=== PATIENT | male | born 1980 | race Caucasian/White ===

== ENCOUNTER → 2017-12-07 | Outpatient (CLI) | payer OTHER ==
[~2017-12-07] MED LIST: NOHOMEMEDICATIONS; NORCO 5-325 TA1 EACH PO
== END ==
LOC: M.ULTRA 16:00
DX: S86.811A Strain of other muscle(s) and tendon(s) at lower leg level, right leg, initial encounter (principal); R60.0 Localized edema; V89.2XXA Person injured in unspecified motor-vehicle accident, traffic, initial encounter; Y93.89 Activity, other specified; Y92.89 Other specified places as the place of occurrence of the external cause; Y99.8 Other external cause status

== ENCOUNTER 2020-09-07 18:23 | Emergency (ER) | payer OTHER ==
[~2020-09-07] VITALS: Ht 177.8 cm; Wt 131.5 kg
[2020-09-07] MEDS ORDERED: PREDNISONE 20 M20 MG PO (19:15)
[2020-09-07] MEDS ORDERED: ZPAK PO (19:15)
[2020-09-07] MEDS ORDERED: PROAIR HFA8.5 GM INH (19:15)
[2020-09-07 20:01] VITALS: BP 116/77
== END 2020-09-07 20:01 | disposition home or self-care (01) ==
LOC: M.ERS 18:23
DX: U07.1 COVID-19 (principal); J12.82 Pneumonia due to coronavirus disease 2019

== ENCOUNTER 2020-09-12 19:12 | Inpatient (IN) | payer OTHER ==
[~2020-09-12] VITALS: Ht 172.7 cm; Wt 123.8 kg
[~2020-09-12 19:12] MED LIST changes: +PREDNISONE 20 M20 MG PO; +PROAIR HFA8.5 GM INH; +ZPAK PO
[2020-09-12 19:29] VITALS: BP 152/86
[2020-09-12 20:09] LABS: HEMATOCRIT 43.5 % (42.0-52.0); HEMOGLOBIN 14.9 gm/dL (14.0-18.0); MCH 31.4 pg (26.0-34.0); MCHC 34.3 g/dL (28.0-37.0); MCV 91.7 fL (80.0-100.0); MPV 7.7 fl. (7.2-11.1); NUCLEATED RBCS 0 /100WBC; PLATELET COUNT* 565 thou/uL (150-400); RBC 4.75 mil/uL (4.50-6.00); WBC 11.9 thou/uL (4.0-11.0)
[2020-09-12 20:17] LABS: CALCIUM 8.5 mg/dL (8.5-10.1); CREATININE 1.1 mg/dL (0.6-1.3); POTASSIUM 3.8 mmol/L (3.5-5.1)
[2020-09-12 20:22] LABS: ALBUMIN 2.8 g/dL (3.4-5.0); MAGNESIUM 2.5 mg/dL (1.8-2.4); TOTAL BILIRUBIN 0.5 mg/dL (<0.1-1.0); TOTAL PROTEIN 8.2 g/dL (6.4-8.2)
[2020-09-12 20:30] LABS: ABSOLUTE MONOCYTES 0.5 thou/uL (0.0-1.2); ABSOLUTE NEUTROPHILS 10.5 thou/uL (1.6-8.1)
[2020-09-12 20:31] LABS: LARGE PLATELETS FEW; PLATELET ESTIMATE INCREASED
[2020-09-12 21:07] LABS: BE 4.4 mmol/L (-2 to +3); PO2 85.8 mmHg (75.0-100.0); pH 7.525 (7.340-7.450)
[2020-09-12 23:39] LABS: URINE BILIRUBIN NEGATIVE (Negative); URINE BLOOD TRACE (Negative); URINE CLARITY CLEAR; URINE COLOR YELLOW; URINE GLUCOSE-RANDOM 1+ (Negative); URINE KETONES TRACE (Negative); URINE LEUKOCYTES-REFLEX NEGATIVE (Negative); URINE NITRITE-REFLEX NEGATIVE (Negative); URINE PROTEIN 2+ (Negative); URINE SPECIFIC GRAVITY 1.025 (1.005-1.030)
[2020-09-12 23:55] LABS: BACTERIA-REFLEX 1-9 Few /HPF (None Seen); CASTS None Seen /LPF (None Seen); CRYSTALS None Seen /LPF (None Seen); MUCUS 0-3 Light strn/LPF (None Seen); SQUAMOUS 0-3 Few /LPF (0-3); URINE RBC 0-2 Rare /HPF (0-2); URINE WBC-REFLEX None Seen /HPF (0-5)
[2020-09-13] VITALS (94 sets, daily range): BP systolic 92–189; BP diastolic 45–135
--- NOTE | 2020-09-13 11:45 | EKG ---
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
[2020-09-13 20:20] LABS: BE -2.3 mmol/L (-2 to +3); PCO2 35.8 mmHg (35.0-45.0); PO2 65.4 mmHg (75.0-100.0); pH 7.403 (7.340-7.450)
[2020-09-13 21:50] LABS: ABSOLUTE EOSINOPHILS 0.1 thou/uL (0.0-0.7); ABSOLUTE MONOCYTES 0.2 thou/uL (0.0-1.2); ABSOLUTE NEUTROPHILS 6.8 thou/uL (1.6-8.1); BASOPHILS 0.4 %; EOSINOPHILS 1.2 %; HEMOGLOBIN 13.3 gm/dL (14.0-18.0); LYMPHOCYTES 12.6 %; MCH 32.4 pg (26.0-34.0); MCHC 35.1 g/dL (28.0-37.0); MCV 92.3 fL (80.0-100.0); MONOCYTES 2.6 %; MPV 7.3 fl. (7.2-11.1); NUCLEATED RBCS 0 /100WBC; POLYS 83.2 %; RBC 4.11 mil/uL (4.50-6.00); RDW-CV 12.9 % (10.5-14.5); WBC 8.1 thou/uL (4.0-11.0)
[2020-09-13 21:53] LABS: PLATELET COUNT* 352 thou/uL (150-400)
[2020-09-13 21:58] LABS: CALCIUM 7.3 mg/dL (8.5-10.1); CREATININE 1.1 mg/dL (0.6-1.3)
[2020-09-13 22:09] LABS: ALBUMIN 2.2 g/dL (3.4-5.0); TOTAL BILIRUBIN 0.7 mg/dL (<0.1-1.0); TOTAL PROTEIN 6.7 g/dL (6.4-8.2)
[2020-09-13 22:10] LABS: FIBRINOGEN 643 mg/dL (200-340); INR 1.2; PROTIME 12.9 Seconds (9.20-11.50)
[2020-09-14] VITALS (92 sets, daily range): BP systolic 90–142; BP diastolic 45–82
[2020-09-14 03:45] LABS: HEMATOCRIT 39.7 % (42.0-52.0); HEMOGLOBIN 13.7 gm/dL (14.0-18.0); MCH 32.2 pg (26.0-34.0); MCHC 34.6 g/dL (28.0-37.0); MCV 93.1 fL (80.0-100.0); MPV 7.6 fl. (7.2-11.1); RBC 4.26 mil/uL (4.50-6.00); WBC 6.9 thou/uL (4.0-11.0)
[2020-09-14 03:58] LABS: PHOSPHORUS* 2.4 mg/dL (2.5-4.9)
[2020-09-14 04:14] LABS: ALBUMIN 2.2 g/dL (3.4-5.0); CALCIUM 7.6 mg/dL (8.5-10.1); CREATININE 1.2 mg/dL (0.6-1.3); MAGNESIUM 2.7 mg/dL (1.8-2.4); POTASSIUM 4.5 mmol/L (3.5-5.1); TOTAL BILIRUBIN 0.7 mg/dL (<0.1-1.0); TOTAL PROTEIN 7.1 g/dL (6.4-8.2)
[2020-09-14 07:20] LABS: BE -0.6 mmol/L (-2 to +3); PCO2 37.1 mmHg (35.0-45.0); PO2 61.9 mmHg (75.0-100.0)
--- NOTE | 2020-09-14 13:43 | 2DMMODE ---
[place] [address] 2 D/M-MODE ECHOCARDIOGRAM Name: SANCHEZ SMITH Room: [address] IN [facility]#: [id number] Admission: 09/12/20 Attend Phys: Sharon Joya, Discharge: Date of : 76 Date of Service: 09/14/20 1343 Report #: [id number] THIS REPORT FOR: cc: Kevin Pickett Bradley L. DO Holkins, John M. MD [facility] ~ APPROVED REPORT Study performed: 09/14/2020 10:59:17 EXAM: Comprehensive 2D, Doppler, and color-flow Echocardiogram Patient Location: In-Patient Room #: 002 Status: routine BSA: 2.39 HR: 98 bpm BP: 142/78 mmHg Rhythm: NSR Other Information Study Quality: Good Indications respiratory failure 2D Dimensions IVSd: 14.26 (7-11mm) LVOT Diam: 21.61 (18-24mm) LVDd: 38.90 mm PWd: 10.84 (7-11mm) Ascending Ao: 30.05 (22-36mm) LVDs: 21.52 (25-40mm) Aortic Root: 36.02 mm Aortic Valve AoV Peak Onesimo.: 1.39 m/s AO Peak Gr.: 7.77 mmHg LVOT Max P.61 mmHg AO Mean Gr.: 4.47 mmHg LVOT Mean P.96 mmHg LVOT Max V: 1.29 m/s AO V2 VTI: 19.88 cm LVOT Mean V: 0.77 m/s MADDISON (VTI): 3.74 cm2 LVOT V1 VTI: 20.25 cm Mitral Valve E/A Ratio: 1.17 MV Decel. Time: 227.91 ms MV E Max Onesimo.: 0.69 m/[place] [address] 2 D/M-MODE ECHOCARDIOGRAM Name: SANCHEZ SMITH Room: [address] IN [facility]#: [id number] Admission: 09/12/20 Attend Phys: Sharon Joya, Discharge: Date of : 76 Date of Service: 09/14/20 1343 Report #: [id number] MV PHT: 66.09 ms MVA (PHT): 3.33 cm2 Pulmonary Valve PV Peak Onesimo.: 1.08 m/s PV Peak Gr.: 4.68 mmHg Tricuspid Valve RAP Estimate: 5.00 mmHg TR Peak Gr.: 40.81 mmHg RVSP: 45.00 mmHg PA Pressure: 45.00 mmHg Left Ventricle The left ventricle is normal size. There is normal LV segmental wall motion. There is normal left ventricular wall thickness. Left ventricular systolic function is normal. The left ventricular ejection fraction is within the normal range. LVEF is 60-65%. The left ventricular diastolic function is normal. Right Ventricle The right ventricle is normal size. The right ventricular systolic function is normal. Atria The left atrium size is normal. The right atrium size is normal. Aortic Valve The aortic valve is normal in structure. No aortic regurgitation is present. There is no aortic valvular stenosis. Mitral Valve The mitral valve is normal in structure. Trace mitral regurgitation. No evidence of mitral valve stenosis. Tricuspid Valve The tricuspid valve is normal in structure. Mild tricuspid regurgitation. Moderate pulmonary hypertension. Pulmonic Valve The pulmonary valve is normal in structure. Trace pulmonic regurgitation. Great Vessels The aortic root is normal in size. IVC is normal in size and collapses >50% [place] [address] 2 D/M-MODE ECHOCARDIOGRAM Name: SANCHEZ SMITH Room: [address]#: [id number] Admission: 09/12/20 Attend Phys: Sharon Joya, Discharge: Date of : 76 Date of Service: 09/14/20 1343 Report #: [id number] Pericardium There is no pericardial effusion. <Conclusion> The left ventricle is normal size. There is normal left ventricular wall thickness. Left ventricular systolic function is normal. The left ventricular ejection fraction is within the normal range. LVEF is 60-65%. The left ventricular diastolic function is normal. The right ventricle is normal size. The left atrium size is normal. The aortic valve is normal in structure. The mitral valve is normal in structure. Trace mitral regurgitation. The tricuspid valve is normal in structure. Mild tricuspid regurgitation. Moderate pulmonary hypertension. IVC is normal in size and collapses >50% with inspiration. There is no pericardial effusion. There is normal LV segmental wall motion. <ELECTRONICALLY SIGNED> By: Camden Iraheta MD, FACC 09/14/20 1343 1343 1343 Camden Iraheta MD, FACC /INF
[2020-09-14 14:05] LABS: BE 2.1 mmol/L (-2 to +3); PCO2 41.3 mmHg (35.0-45.0); PO2 96.7 mmHg (75.0-100.0); pH 7.427 (7.340-7.450)
[2020-09-15] VITALS (77 sets, daily range): BP systolic 87–174; BP diastolic 45–76
[2020-09-15 05:49] LABS: HEMATOCRIT 35.4 % (42.0-52.0); HEMOGLOBIN 12.1 gm/dL (14.0-18.0); MCH 31.7 pg (26.0-34.0); MCHC 34.1 g/dL (28.0-37.0); MCV 92.8 fL (80.0-100.0); MPV 8.1 fl. (7.2-11.1); RBC 3.82 mil/uL (4.50-6.00); RDW-CV 12.9 % (10.5-14.5)
[2020-09-15 05:59] LABS: CALCIUM 7.5 mg/dL (8.5-10.1); CREATININE 0.9 mg/dL (0.6-1.3); POTASSIUM 4.2 mmol/L (3.5-5.1)
[2020-09-15 09:18] LABS: BE 0.4 mmol/L (-2 to +3); PCO2 44.6 mmHg (35.0-45.0); PO2 114.8 mmHg (75.0-100.0); pH 7.381 (7.340-7.450)
[2020-09-15 15:59] LABS: BE 0.3 mmol/L (-2 to +3); PCO2 46.7 mmHg (35.0-45.0); pH 7.365 (7.340-7.450)
[2020-09-15 16:01] LABS: PO2 164.8 mmHg (75.0-100.0)
[2020-09-16] VITALS (52 sets, daily range): BP systolic 102–175; BP diastolic 43–130
[2020-09-16 05:53] LABS: HEMATOCRIT 36.8 % (42.0-52.0); HEMOGLOBIN 12.2 gm/dL (14.0-18.0); MCV 93.8 fL (80.0-100.0); MPV 7.9 fl. (7.2-11.1); NUCLEATED RBCS 0 /100WBC; PLATELET COUNT* 515 thou/uL (150-400); RBC 3.93 mil/uL (4.50-6.00); RDW-CV 13.4 % (10.5-14.5); WBC 8.7 thou/uL (4.0-11.0)
[2020-09-16 05:59] LABS: ALBUMIN 2.1 g/dL (3.4-5.0); CALCIUM 7.7 mg/dL (8.5-10.1); CREATININE 0.8 mg/dL (0.6-1.3); MAGNESIUM 2.7 mg/dL (1.8-2.4); POTASSIUM 4.9 mmol/L (3.5-5.1); TOTAL BILIRUBIN 0.5 mg/dL (<0.1-1.0); TOTAL PROTEIN 6.1 g/dL (6.4-8.2)
[2020-09-16 06:04] LABS: PHOSPHORUS* 3.3 mg/dL (2.5-4.9)
[2020-09-16 08:23] LABS: ABSOLUTE LYMPHOCYTES 0.7 thou/uL (0.8-5.3); ABSOLUTE MONOCYTES 0.5 thou/uL (0.0-1.2); ABSOLUTE NEUTROPHILS 7.5 thou/uL (1.6-8.1); PLATELET ESTIMATE ADEQUATE
[2020-09-16 09:45] LABS: BE 1.5 mmol/L (-2 to +3); pH 7.357 (7.340-7.450)
[2020-09-16 09:47] LABS: PCO2 50.8 mmHg (35.0-45.0); PO2 157.1 mmHg (75.0-100.0)
[2020-09-16 17:14] LABS: BE 4.5 mmol/L (-2 to +3); PCO2 48.9 mmHg (35.0-45.0); pH 7.408 (7.340-7.450)
[2020-09-16 17:15] LABS: PO2 128.8 mmHg (75.0-100.0)
[2020-09-16 18:25] LABS: CALCIUM 7.8 mg/dL (8.5-10.1); CREATININE 0.9 mg/dL (0.6-1.3); POTASSIUM 4.8 mmol/L (3.5-5.1)
[2020-09-17] VITALS (38 sets, daily range): BP systolic 104–195; BP diastolic 50–102
[2020-09-17 06:22] LABS: ABSOLUTE BASOPHILS 0.1 thou/uL (0.0-0.2); ABSOLUTE EOSINOPHILS 0.2 thou/uL (0.0-0.7); ABSOLUTE LYMPHOCYTES 1.4 thou/uL (0.8-5.3); ABSOLUTE MONOCYTES 0.4 thou/uL (0.0-1.2); ABSOLUTE NEUTROPHILS 5.1 thou/uL (1.6-8.1); BASOPHILS 0.8 %; EOSINOPHILS 2.6 %; HEMATOCRIT 35.3 % (42.0-52.0); HEMOGLOBIN 11.7 gm/dL (14.0-18.0); MCH 31.1 pg (26.0-34.0); MCHC 33.3 g/dL (28.0-37.0); MCV 93.5 fL (80.0-100.0); MONOCYTES 6.1 %; MPV 7.9 fl. (7.2-11.1); NUCLEATED RBCS 0 /100WBC; PLATELET COUNT* 454 thou/uL (150-400); POLYS 71.5 %; RBC 3.77 mil/uL (4.50-6.00); RDW-CV 12.9 % (10.5-14.5); WBC 7.1 thou/uL (4.0-11.0)
[2020-09-17 06:30] LABS: ALBUMIN 2.5 g/dL (3.4-5.0); CREATININE 0.8 mg/dL (0.6-1.3); MAGNESIUM 2.3 mg/dL (1.8-2.4); PHOSPHORUS* 3.2 mg/dL (2.5-4.9); POTASSIUM 4.5 mmol/L (3.5-5.1); TOTAL BILIRUBIN 0.5 mg/dL (<0.1-1.0); TOTAL PROTEIN 6.3 g/dL (6.4-8.2)
[2020-09-17 07:55] LABS: BE 6.2 mmol/L (-2 to +3); PO2 122.1 mmHg (75.0-100.0); pH 7.435 (7.340-7.450)
--- NOTE | 2020-09-17 16:40 | CON ---
[address] [address] CONSULTATION Name: SANCHEZ SMITH Room: [address] IN M.R.#: [id number] Admission: 09/12/20 Attend Phys: Sharon Joya MD Discharge: Date of : 76 Report #: [id number] THIS REPORT FOR: cc: Kevin Pickett Bradley L. DO Pervez, Adeel MD ~ DATE OF CONSULTATION: 09/14/2020 REQUESTING PHYSICIAN: Macho Roche MD. INDICATION FOR CONSULTATION: Acute hypoxemic respiratory failure secondary to COVID-19. HISTORY OF PRESENT ILLNESS: A 39-year-old gentleman with past medical history is as mentioned below. He is morbidly obese; however, he does not have a past medical history of a cardiac or respiratory disease. It will be possible that he has underlying obstructive sleep apnea. He is not known to be a smoker. The patient had presented to the Emergency Room a few days ago and he was noted to have a positive COVID-19 antigen; at that time, he was prescribed azithromycin as well as prednisone and was discharged home. The patient then presented again during the night before last. Presentation was with worsening shortness of breath and hypoxemia. The patient eventually was endotracheally intubated and then when I was called last night, the patient was on 100% FiO2 with 10 of PEEP, the O2 saturation was in the 80s. The patient was on pressure control mode of ventilation. Dr. Macho Roche consulted me. At that time, I made adjustments to the sedation as well as the ventilator. The patient during the night has also had a high-grade fever up to 39.2 this morning. We proceeded to fully anticoagulating the patient as the D-dimer was significantly elevated. I ordered a sputum culture after which started cefepime, also recommended dexamethasone at 10 mg b.i.d. initially till his O2 saturation is better. This morning, the patient was still continuing to barely saturate around 90%. We had increased PEEP to 12. His tidal volumes had in fact increased significantly. I therefore proceeded to decreasing the pressure control and increasing the PEEP to 15. The patient has now stabilized and is oxygenating at 96-97%. He is on multiple sedative agents as mentioned below. The patient is maintaining blood pressure in the normal range. He is on the ventilator and therefore is unable to provide a further history or review of systems. PAST MEDICAL HISTORY: Morbid obesity, it will be possible that he has previously undiagnosed [place] [address] CONSULTATION Name: SANCHEZ SMITH Room: [address] IN [facility]#: [id number] Admission: 09/12/20 Attend Phys: Sharon Joya MD Discharge: Date of : 76 Report #: [id number] SOCIAL HISTORY: There is no known history of smoking, ethanol abuse, or drug abuse. CURRENT MEDICATIONS: The list is in [employer] reviewed. HOME MEDICATIONS: Also list in [facility] reviewed. Also, see discussion above. ALLERGIES: No known drug allergies. FAMILY HISTORY: No pertinent family history. PHYSICAL EXAMINATION: GENERAL: He is currently on multiple sedative agents, I have discussed this below in more detail. VITAL SIGNS: Has a pulse of 86 and a blood pressure of 140/78, he had a high-grade fever this morning of 39.2. He was overbreathing on the ventilator at around 26-27, I have reduced his pressure control to 18, PEEP is at 15, the FiO2 is 100%. HEENT: Head is normocephalic and atraumatic. There is an endotracheal tube, which is in good position. NECK: Does not show raised JVP, asymmetry, mass or lymph nodes. CHEST: Symmetrical expansion on inspection and palpation. On auscultation, breath sounds are bilaterally equal, but decreased. I do not hear any added sounds. HEART: Regular. There is no murmur. ABDOMEN: Soft and nontender. EXTREMITIES: Lower extremities show trace edema only. No calf tenderness. SKIN: Dry and intact. NEUROLOGIC: He did move all extremities to pain. He is on sedation as described above. LABORATORY DATA: The patient's chest x-ray is consistent with ARDS secondary to COVID-19. The patient's lab work is in [facility] and this is reviewed. ASSESSMENT AND PLAN: 1. Acute hypoxemic respiratory failure secondary to COVID-19. We will continue to adjust the ventilator. He has high tidal volumes. I will therefore decrease the pressure control further. I have increased the PEEP and this has resulted in improvement in O2 saturation. We will continue with propofol. However in order to limit long-term toxicity with propofol, I will try to limit the dose at 50 mcg per kg per minute for now, we will continue with fentanyl drip. If needed, we will increase fentanyl. If fentanyl and propofol are not sufficient, which appears to be the case right now then we will give him Versed as well. [address] [address] CONSULTATION Name: SMITH,SANCHEZ Mohan Room: [address] IN [place].#: [id number] Admission: 09/12/20 Attend Phys: Sharon Joya MD Discharge: Date of : 76 Report #: [id number] Initially, I had recommended that we sedate him to RASS -3. However if he improves, then sedation could be lowered to RASS -2 soon. The patient obviously is not appropriate for sedation medication at this time. Precedex is not likely to be effective at this time, so for now I would taper off Precedex. Certainly, we will consider Precedex again later if hopefully we reach the stage of trying to wean him off the ventilator. We will order propofol related labs for tomorrow morning. I also recommend that we go ahead and proceed to proning him this evening. We will plan to prone him for 12 hours. Therefore, I did not start tube feeds now, but we will reassess and consider tube feeds tomorrow. 2. COVID-19 leading to acute respiratory distress syndrome. Recommend treating him with dexamethasone as reviewed in up to date. A dose of up to a total of 20 mg of dexamethasone is recommended to be considered for patients on high FiO2 with ARDS secondary to COVID-19. It is not fully known as to whether this higher dose has more benefit or harm compared to the standard dose of 6 mg for COVID-19. Considering significant hypoxemia, I had recommended a total of 20 mg of dexamethasone daily. I understand that the primary service prefers to use the standard dose of 6 mg instead. We will follow response. In case the patient's hypoxemia fails to improve, then we will revisit this with the primary service. I agree with remdesivir, we will continue. Recommend following LFTs while he is on remdesivir. The patient has received 1 unit of convalescent plasma. I do not feel strongly either way regarding administering or holding off on the second unit of convalescent plasma. Considering severe hypoxemia, I did go ahead and administered 1 dose of Actemra last night as well. 3. Pulmonary infiltrates. The patient has a high-grade fever up to 39.2 this morning. He is also severely hypoxemic. Therefore, despite WBC count being normal, I favor continuing with broad spectrum antibiotics. I had chosen cefepime as the patient is reported to have recently received azithromycin and therefore an atypical infection will be unlikely. He also does not have risk factors for MRSA, regardless MRSA coverage can be considered if he fails to improve. I did send off a sputum as well as a nasal swab for MRSA last night. Recommend tailoring antibiotic coverage according to results. We will favor continuing antibiotics even if procalcitonin is not elevated. However, if no resistant organisms are cultured then cefepime could potentially be switched over to ceftriaxone. 4. Markedly elevated D-dimer/evaluation for thromboembolic phenomena. The patient's D-dimer is greater than 35, pending evaluation. I therefore ordered a full dose Lovenox. The echocardiogram, which I had ordered last night has already been performed and only shows mild elevation in pulmonary artery systolic at 45. The left ventricular ejection fraction is 60-65, deep venous Dopplers are pending. We will reassess the Lovenox dose once venous Dopplers are available. I would like to obtain a CTA chest to clarify the presence or otherwise of thromboembolism; however, the patient is too unstable to transport to CT at this time. 5. Gastrointestinal prophylaxis. We will order Protonix. [address] [place] [address] CONSULTATION Name: SANCHEZ SMITH Room: [address] IN M.R.#: [id number] Admission: 09/12/20 Attend Phys: Sharon Joya MD Discharge: Date of : 76 Report #: [id number] 6. Clostridium difficile prophylaxis, Lactinex. 7. Deep venous thrombosis prophylaxis. See discussion above. 8. Hyperglycemia. I ordered an insulin sliding scale last night, I would defer further followup of this to the primary service. The patient is critically ill at this time. Total time spent providing critical care to this patient today exceeds 46 minutes. <ELECTRONICALLY SIGNED> By: Austyn Pelayo MD 09/17/20 1640 1338 [id number] Pelayo MD /nt
[2020-09-18] VITALS (49 sets, daily range): BP systolic 109–199; BP diastolic 64–100
[2020-09-18 06:05] LABS: ABSOLUTE LYMPHOCYTES 0.4 thou/uL (0.8-5.3); ABSOLUTE MONOCYTES 0.3 thou/uL (0.0-1.2); ABSOLUTE NEUTROPHILS 7.6 thou/uL (1.6-8.1); BASOPHILS 0.4 %; EOSINOPHILS 0.2 %; HEMATOCRIT 38.1 % (42.0-52.0); HEMOGLOBIN 12.9 gm/dL (14.0-18.0); LYMPHOCYTES 5.3 %; MCH 31.2 pg (26.0-34.0); MCHC 33.9 g/dL (28.0-37.0); MCV 92.2 fL (80.0-100.0); MONOCYTES 3.9 %; MPV 8.1 fl. (7.2-11.1); NUCLEATED RBCS 0 /100WBC; PLATELET COUNT* 439 thou/uL (150-400); POLYS 90.2 %; RBC 4.13 mil/uL (4.50-6.00); RDW-CV 12.8 % (10.5-14.5); WBC 8.4 thou/uL (4.0-11.0)
[2020-09-18 06:22] LABS: ALBUMIN 2.9 g/dL (3.4-5.0); CREATININE 0.8 mg/dL (0.6-1.3); TOTAL BILIRUBIN 0.5 mg/dL (<0.1-1.0); TOTAL PROTEIN 6.2 g/dL (6.4-8.2)
[2020-09-18 06:30] LABS: POTASSIUM 5.5 mmol/L (3.5-5.1)
[2020-09-18 10:58] LABS: BE 6.9 mmol/L (-2 to +3); PCO2 47.9 mmHg (35.0-45.0); PO2 96.1 mmHg (75.0-100.0); pH 7.445 (7.340-7.450)
[2020-09-18 16:57] LABS: BE 5.7 mmol/L (-2 to +3); PCO2 42.1 mmHg (35.0-45.0); PO2 106.8 mmHg (75.0-100.0); pH 7.471 (7.340-7.450)
[2020-09-18 18:01] LABS: CALCIUM 8.2 mg/dL (8.5-10.1); CREATININE 1.1 mg/dL (0.6-1.3); MAGNESIUM 2.1 mg/dL (1.8-2.4); POTASSIUM 4.7 mmol/L (3.5-5.1)
[2020-09-18 19:34] LABS: URINE BILIRUBIN NEGATIVE (Negative); URINE BLOOD TRACE (Negative); URINE CLARITY CLEAR; URINE COLOR YELLOW; URINE GLUCOSE-RANDOM 2+ (Negative); URINE KETONES NEGATIVE (Negative); URINE LEUKOCYTES-REFLEX NEGATIVE (Negative); URINE NITRITE-REFLEX NEGATIVE (Negative); URINE PROTEIN NEGATIVE (Negative)
[2020-09-19] VITALS (47 sets, daily range): BP systolic 99–161; BP diastolic 47–83
[2020-09-19 04:30] LABS: HEMATOCRIT 39.7 % (42.0-52.0); HEMOGLOBIN 13.6 gm/dL (14.0-18.0); MCH 31.1 pg (26.0-34.0); MCHC 34.3 g/dL (28.0-37.0); MCV 90.9 fL (80.0-100.0); MPV 7.9 fl. (7.2-11.1); NUCLEATED RBCS 0 /100WBC; PLATELET COUNT* 417 thou/uL (150-400); RBC 4.37 mil/uL (4.50-6.00); RDW-CV 12.6 % (10.5-14.5); WBC 9.4 thou/uL (4.0-11.0)
[2020-09-19 04:47] LABS: CALCIUM 8.1 mg/dL (8.5-10.1); MAGNESIUM 2.3 mg/dL (1.8-2.4); POTASSIUM 4.8 mmol/L (3.5-5.1); TOTAL BILIRUBIN 0.7 mg/dL (<0.1-1.0); TOTAL PROTEIN 6.8 g/dL (6.4-8.2)
[2020-09-19 04:48] LABS: PHOSPHORUS* 4.3 mg/dL (2.5-4.9)
[2020-09-19 08:09] LABS: BE 4.4 mmol/L (-2 to +3); PCO2 43.6 mmHg (35.0-45.0); pH 7.443 (7.340-7.450)
[2020-09-19 08:13] LABS: PO2 165.7 mmHg (75.0-100.0)
[2020-09-19 08:29] LABS: ABSOLUTE LYMPHOCYTES 0.2 thou/uL (0.8-5.3); ABSOLUTE MONOCYTES 0.5 thou/uL (0.0-1.2); ABSOLUTE NEUTROPHILS 8.7 thou/uL (1.6-8.1); PLATELET ESTIMATE ADEQUATE
[2020-09-20] VITALS (52 sets, daily range): BP systolic 110–168; BP diastolic 55–90
[2020-09-20 14:43] LABS: HEMATOCRIT 36.9 % (42.0-52.0); HEMOGLOBIN 12.5 gm/dL (14.0-18.0); MCH 31.4 pg (26.0-34.0); MCHC 33.8 g/dL (28.0-37.0); MCV 93.1 fL (80.0-100.0); MPV 7.9 fl. (7.2-11.1); NUCLEATED RBCS 0 /100WBC; PLATELET COUNT* 367 thou/uL (150-400); RBC 3.97 mil/uL (4.50-6.00); RDW-CV 12.3 % (10.5-14.5)
[2020-09-20 14:52] LABS: ALBUMIN 2.9 g/dL (3.4-5.0); CALCIUM 7.8 mg/dL (8.5-10.1); CREATININE 0.7 mg/dL (0.6-1.3); POTASSIUM 4.6 mmol/L (3.5-5.1); TOTAL BILIRUBIN 0.5 mg/dL (<0.1-1.0); TOTAL PROTEIN 6.1 g/dL (6.4-8.2)
[2020-09-20 15:29] LABS: ABSOLUTE LYMPHOCYTES 0.5 thou/uL (0.8-5.3); ABSOLUTE MONOCYTES 0.6 thou/uL (0.0-1.2); ABSOLUTE NEUTROPHILS 10.9 thou/uL (1.6-8.1)
[2020-09-20 15:30] LABS: LARGE PLATELETS FEW; PLATELET ESTIMATE ADEQUATE
[2020-09-20 17:07] LABS: CMV IgM Abs <30.0 AU/mL (0.0-29.9); EBNA-1 IgG 75.5 U/mL (0.0-17.9); EBV VCA IgM <36.0 U/mL (0.0-35.9)
[2020-09-21] VITALS (47 sets, daily range): BP systolic 112–161; BP diastolic 67–97
[2020-09-21 11:39] LABS: ABSOLUTE LYMPHOCYTES 0.4 thou/uL (0.8-5.3); ABSOLUTE MONOCYTES 0.5 thou/uL (0.0-1.2); ABSOLUTE NEUTROPHILS 8.6 thou/uL (1.6-8.1); BASOPHILS 0.2 %; HEMATOCRIT 36.5 % (42.0-52.0); HEMOGLOBIN 12.6 gm/dL (14.0-18.0); LYMPHOCYTES 4.1 %; MCH 31.8 pg (26.0-34.0); MCHC 34.5 g/dL (28.0-37.0); MCV 92.3 fL (80.0-100.0); MONOCYTES 5.8 %; MPV 8.2 fl. (7.2-11.1); NUCLEATED RBCS 0 /100WBC; PLATELET COUNT* 340 thou/uL (150-400); POLYS 89.9 %; RBC 3.95 mil/uL (4.50-6.00); RDW-CV 12.7 % (10.5-14.5); WBC 9.5 thou/uL (4.0-11.0)
[2020-09-21 11:52] LABS: POTASSIUM 4.5 mmol/L (3.5-5.1)
[2020-09-21 12:06] LABS: ALBUMIN 2.8 g/dL (3.4-5.0); CALCIUM 7.9 mg/dL (8.5-10.1); CREATININE 0.7 mg/dL (0.6-1.3); MAGNESIUM 2.3 mg/dL (1.8-2.4); TOTAL BILIRUBIN 0.7 mg/dL (<0.1-1.0)
[2020-09-21 15:38] LABS: BE 6.7 mmol/L (-2 to +3); PCO2 45.6 mmHg (35.0-45.0); PO2 71.2 mmHg (75.0-100.0); pH 7.458 (7.340-7.450)
[2020-09-22] VITALS (23 sets, daily range): BP systolic 116–166; BP diastolic 61–91
[2020-09-22 09:23] LABS: CALCIUM 8.6 mg/dL (8.5-10.1); CREATININE 0.8 mg/dL (0.6-1.3)
[2020-09-22 12:00] LABS: ALBUMIN 3.6 g/dL (3.4-5.0); CALCIUM 8.8 mg/dL (8.5-10.1); CREATININE 0.9 mg/dL (0.6-1.3); POTASSIUM 4.3 mmol/L (3.5-5.1); TOTAL BILIRUBIN 0.9 mg/dL (<0.1-1.0); TOTAL PROTEIN 6.5 g/dL (6.4-8.2)
[2020-09-22 12:01] LABS: ABSOLUTE BASOPHILS 0.2 thou/uL (0.0-0.2); ABSOLUTE LYMPHOCYTES 0.3 thou/uL (0.8-5.3); ABSOLUTE NEUTROPHILS 12.3 thou/uL (1.6-8.1); BASOPHILS 1.1 %; EOSINOPHILS 0.3 %; HEMATOCRIT 41.5 % (42.0-52.0); HEMOGLOBIN 13.8 gm/dL (14.0-18.0); LYMPHOCYTES 2.4 %; MCH 31.4 pg (26.0-34.0); MCHC 33.3 g/dL (28.0-37.0); MCV 94.3 fL (80.0-100.0); MONOCYTES 7.2 %; MPV 9.2 fl. (7.2-11.1); NUCLEATED RBCS 0 /100WBC; RDW-CV 13.3 % (10.5-14.5); WBC 13.8 thou/uL (4.0-11.0)
[2020-09-22 12:13] LABS: PLATELET COUNT* 515 thou/uL (150-400)
[2020-09-23] VITALS (9 sets, daily range): BP systolic 121–137; BP diastolic 73–86
[2020-09-23 10:22] LABS: ABSOLUTE LYMPHOCYTES 0.6 thou/uL (0.8-5.3); ABSOLUTE MONOCYTES 0.9 thou/uL (0.0-1.2); ABSOLUTE NEUTROPHILS 14.4 thou/uL (1.6-8.1); EOSINOPHILS 0.1 %; HEMATOCRIT 39.8 % (42.0-52.0); HEMOGLOBIN 13.3 gm/dL (14.0-18.0); LYMPHOCYTES 3.6 %; MCHC 33.4 g/dL (28.0-37.0); MCV 92.7 fL (80.0-100.0); MONOCYTES 5.8 %; MPV 8.3 fl. (7.2-11.1); NUCLEATED RBCS 0 /100WBC; PLATELET COUNT* 504 thou/uL (150-400); POLYS 90.5 %; RBC 4.29 mil/uL (4.50-6.00); WBC 15.9 thou/uL (4.0-11.0)
[2020-09-23 10:31] LABS: ALBUMIN 3.3 g/dL (3.4-5.0); CALCIUM 7.9 mg/dL (8.5-10.1); CREATININE 0.6 mg/dL (0.6-1.3); POTASSIUM 3.5 mmol/L (3.5-5.1); TOTAL PROTEIN 6.3 g/dL (6.4-8.2)
[2020-09-24 00:51] VITALS: BP 139/91
[2020-09-24 06:08] VITALS: BP 138/80
[2020-09-24 11:39] VITALS: BP 151/83
[2020-09-24 16:16] VITALS: BP 136/82
[2020-09-24 20:00] VITALS: BP 134/74
[2020-09-25 00:50] VITALS: BP 143/89
[2020-09-25 04:51] VITALS: BP 148/87
[2020-09-25 08:00] VITALS: BP 148/100
[2020-09-25 12:00] VITALS: BP 146/91
[2020-09-25 20:00] VITALS: BP 130/97
[2020-09-26] VITALS (7 sets, daily range): BP systolic 119–146; BP diastolic 68–772
[2020-09-26 19:28] LABS: HEMATOCRIT 40.1 % (42.0-52.0); HEMOGLOBIN 13.3 gm/dL (14.0-18.0); MCH 30.9 pg (26.0-34.0); MCHC 33.2 g/dL (28.0-37.0); MCV 93.2 fL (80.0-100.0); MPV 8.3 fl. (7.2-11.1); NUCLEATED RBCS 0 /100WBC; PLATELET COUNT* 569 thou/uL (150-400); RBC 4.31 mil/uL (4.50-6.00); RDW-CV 13.3 % (10.5-14.5); WBC 26.3 thou/uL (4.0-11.0)
[2020-09-26 19:45] LABS: ALBUMIN 3.6 g/dL (3.4-5.0); CALCIUM 8.5 mg/dL (8.5-10.1); POTASSIUM 4.2 mmol/L (3.5-5.1); TOTAL BILIRUBIN 0.6 mg/dL (<0.1-1.0); TOTAL PROTEIN 6.8 g/dL (6.4-8.2)
[2020-09-26 20:49] LABS: ABSOLUTE LYMPHOCYTES 1.3 thou/uL (0.8-5.3); ABSOLUTE MONOCYTES 0.8 thou/uL (0.0-1.2); ABSOLUTE NEUTROPHILS 24.2 thou/uL (1.6-8.1)
[2020-09-26 20:50] LABS: LARGE PLATELETS OCCASIONAL; PLATELET ESTIMATE INCREASED
[2020-09-27 01:27] VITALS: BP 140/82
[2020-09-27 04:27] VITALS: BP 146/86
[2020-09-27 08:00] VITALS: BP 144/94
[2020-09-27 13:06] VITALS: BP 129/74
[2020-09-27 17:02] VITALS: BP 128/86
[2020-09-27 20:00] VITALS: BP 137/80
[2020-09-28 00:11] VITALS: BP 118/72
[2020-09-28 04:18] VITALS: BP 122/73
[2020-09-28 08:00] VITALS: BP 132/80
[2020-09-28 09:37] LABS: ABSOLUTE BASOPHILS 0.2 thou/uL (0.0-0.2); ABSOLUTE LYMPHOCYTES 1.2 thou/uL (0.8-5.3); ABSOLUTE MONOCYTES 1.2 thou/uL (0.0-1.2); ABSOLUTE NEUTROPHILS 21.3 thou/uL (1.6-8.1); EOSINOPHILS 0.1 %; HEMATOCRIT 38.2 % (42.0-52.0); LYMPHOCYTES 5.2 %; MCH 31.3 pg (26.0-34.0); MCHC 34.1 g/dL (28.0-37.0); MCV 91.8 fL (80.0-100.0); MONOCYTES 4.9 %; MPV 7.7 fl. (7.2-11.1); NUCLEATED RBCS 0 /100WBC; PLATELET COUNT* 508 thou/uL (150-400); POLYS 88.8 %; RBC 4.16 mil/uL (4.50-6.00); RDW-CV 13.4 % (10.5-14.5)
[2020-09-28 09:47] LABS: ALBUMIN 3.6 g/dL (3.4-5.0); CALCIUM 8.3 mg/dL (8.5-10.1); CREATININE 0.8 mg/dL (0.6-1.3); TOTAL BILIRUBIN 0.7 mg/dL (<0.1-1.0)
[2020-09-28 12:00] VITALS: BP 109/79
[2020-09-28 16:00] VITALS: BP 131/91
[2020-09-28 20:00] VITALS: BP 136/80
[2020-09-29] VITALS: BP 142/86
[2020-09-29 04:37] VITALS: BP 144/96
[2020-09-29 08:00] VITALS: BP 154/75
[2020-09-29 10:54] LABS: HEMOGLOBIN 12.9 gm/dL (14.0-18.0); MCH 30.6 pg (26.0-34.0); MCHC 33.1 g/dL (28.0-37.0); MCV 92.5 fL (80.0-100.0); MPV 7.4 fl. (7.2-11.1); RBC 4.21 mil/uL (4.50-6.00); RDW-CV 13.5 % (10.5-14.5); WBC 22.8 thou/uL (4.0-11.0)
[2020-09-29 11:06] LABS: CALCIUM 8.6 mg/dL (8.5-10.1); CREATININE 0.9 mg/dL (0.6-1.3); POTASSIUM 4.4 mmol/L (3.5-5.1)
[2020-09-29 12:37] VITALS: BP 122/76
[2020-09-29 17:21] VITALS: BP 124/72
[2020-09-29 20:00] VITALS: BP 130/75
[2020-09-30] VITALS: BP 109/63
[2020-09-30 04:00] VITALS: BP 104/65
[2020-09-30 08:00] VITALS: BP 119/86
[2020-09-30 09:19] LABS: HEMOGLOBIN 12.1 gm/dL (14.0-18.0); MCH 31.7 pg (26.0-34.0); MCHC 34.5 g/dL (28.0-37.0); MCV 91.7 fL (80.0-100.0); MPV 7.7 fl. (7.2-11.1); RBC 3.81 mil/uL (4.50-6.00); RDW-CV 13.5 % (10.5-14.5); WBC 18.5 thou/uL (4.0-11.0)
[2020-09-30 09:27] LABS: CALCIUM 8.3 mg/dL (8.5-10.1); CREATININE 0.7 mg/dL (0.6-1.3); POTASSIUM 3.5 mmol/L (3.5-5.1)
[2020-09-30 12:00] VITALS: BP 120/80
[2020-09-30 16:00] VITALS: BP 125/77
[2020-09-30 20:00] VITALS: BP 121/80
[2020-10-01] VITALS: BP 108/65; BP 109/50
[2020-10-01 04:02] VITALS: BP 125/74
[2020-10-01 04:52] LABS: HEMATOCRIT 35.6 % (42.0-52.0); HEMOGLOBIN 11.9 gm/dL (14.0-18.0); MCH 31.4 pg (26.0-34.0); MCHC 33.4 g/dL (28.0-37.0); MCV 94.2 fL (80.0-100.0); MPV 7.8 fl. (7.2-11.1); RBC 3.78 mil/uL (4.50-6.00); RDW-CV 13.7 % (10.5-14.5); WBC 14.4 thou/uL (4.0-11.0)
[2020-10-01 05:14] LABS: CALCIUM 8.4 mg/dL (8.5-10.1); CREATININE 0.7 mg/dL (0.6-1.3); POTASSIUM 3.4 mmol/L (3.5-5.1)
[2020-10-01 08:00] VITALS: BP 140/81
[2020-10-01 12:00] VITALS: BP 117/72
[2020-10-01 16:00] VITALS: BP 122/87
[2020-10-01 20:00] VITALS: BP 137/87
[2020-10-02 03:53] VITALS: BP 101/65
[2020-10-02 04:28] LABS: ALBUMIN 2.7 g/dL (3.4-5.0); CALCIUM 8.7 mg/dL (8.5-10.1); CREATININE 0.7 mg/dL (0.6-1.3); MAGNESIUM 2.2 mg/dL (1.8-2.4); POTASSIUM 3.6 mmol/L (3.5-5.1); TOTAL BILIRUBIN 0.4 mg/dL (<0.1-1.0); TOTAL PROTEIN 6.6 g/dL (6.4-8.2)
[2020-10-02 04:32] LABS: PHOSPHORUS* 4.6 mg/dL (2.5-4.9)
[2020-10-02 04:40] LABS: HEMATOCRIT 35.6 % (42.0-52.0); HEMOGLOBIN 11.8 gm/dL (14.0-18.0); MCH 30.9 pg (26.0-34.0); MCHC 33.1 g/dL (28.0-37.0); MCV 93.4 fL (80.0-100.0); MPV 7.8 fl. (7.2-11.1); NUCLEATED RBCS 0 /100WBC; PLATELET COUNT* 335 thou/uL (150-400); RBC 3.81 mil/uL (4.50-6.00); RDW-CV 13.8 % (10.5-14.5); WBC 14.4 thou/uL (4.0-11.0)
[2020-10-02 06:00] LABS: ABSOLUTE EOSINOPHILS 0.1 thou/uL (0.0-0.7); ABSOLUTE MONOCYTES 0.9 thou/uL (0.0-1.2); ABSOLUTE NEUTROPHILS 11.4 thou/uL (1.6-8.1); PLATELET ESTIMATE ADEQUATE
[2020-10-02 06:01] LABS: ANISOCYTOSIS 1+; POIKILOCYTOSIS 1+
[2020-10-02] MEDS ORDERED: ELIQUIS5 MG PO (09:39)
[2020-10-02] MEDS ORDERED: PREDNISONE 20 M20 MG PO (09:39)
[2020-10-02] MEDS ORDERED: IPRAT-ALBUT 0.5-3 ML INH (09:39)
[2020-10-02] MEDS ORDERED: MUCINEX600 MG PO (09:39)
[2020-10-02] MEDS ORDERED: CIPROFLOXIN HC2.5 M1 OPHTHALMIC (09:39)
[2020-10-02] MEDS ORDERED: BROVANA15 MCG/2 M INH (09:39)
[2020-10-02] MEDS ORDERED: NEBULIZER MISCELL (09:40)
[2020-10-02] MEDS ORDERED: GLIPIZIDE5 MG PO (09:47)
[2020-10-02 11:55] VITALS: BP 130/88
[2020-10-02 13:40] VITALS: BP 130/88
[2020-10-02 13:50] VITALS: BP 130/88
[2020-10-02 16:37] VITALS: BP 133/81
== END 2020-10-02 18:23 | disposition home health service (06) | DRG 870 ==
LOC: M.ERS 19:12 → M.ORTHSURG 23:38 → M.ICU 23:38 → M.2W 23:38 → M.TBA-ER 23:38 → M.ICU 09-13 15:38 → M.ORTHSURG 09-23 17:06 → M.2W 09-30 21:31
PROVIDERS: Family Medicine; Internal Medicine; Internal Medicine Critical Care Medicine; Personal Emergency Response Attendant; ADMIT Internal Medicine; ATTEND Internal Medicine
DX: A41.89 Other specified sepsis (principal); U07.1 COVID-19; J12.82 Pneumonia due to coronavirus disease 2019; J80 Acute respiratory distress syndrome; K85.90 Acute pancreatitis without necrosis or infection, unspecified; I26.99 Other pulmonary embolism without acute cor pulmonale; E87.2 Acidosis; E87.1 Hypo-osmolality and hyponatremia; Z68.41 Body mass index [BMI] 40.0-44.9, adult; E66.01 Morbid (severe) obesity due to excess calories; R73.9 Hyperglycemia, unspecified; T38.0X5A Adverse effect of glucocorticoids and synthetic analogues, initial encounter; G47.30 Sleep apnea, unspecified; Z79.899 Other long term (current) drug therapy; Z79.51 Long term (current) use of inhaled steroids; Y92.89 Other specified places as the place of occurrence of the external cause